=== PATIENT | female | born 1960 | race Two or more races ===

== ENCOUNTER 2022-10-31 17:09 | Emergency (ER) | payer BC ==
[~2022-10-31] VITALS: Ht 152.4 cm; Wt 73.5 kg
[2022-10-31] MEDS ORDERED: METFORMIN HCL1000 MG (17:21)
[2022-10-31] MEDS ORDERED: DICLOFENAC POTA50 MG PO (22:16)
[2022-10-31] MEDS ORDERED: TRAM1TAB98 PO (22:16)
[2022-10-31] MEDS ORDERED: TAMS0.4C PO (22:16)
== END 2022-10-31 22:21 | disposition home or self-care (01) ==
LOC: ER 17:09
DX: N20.0 Calculus of kidney (principal); K76.0 Fatty (change of) liver, not elsewhere classified; I10 Essential (primary) hypertension; R10.32 Left lower quadrant pain

== ENCOUNTER 2022-11-01 19:29 | Emergency (ER) | payer BC ==
[~2022-11-01] VITALS: Ht 152.4 cm; Wt 73.5 kg
[~2022-11-01 19:29] MED LIST: DICLOFENAC POTA50 MG PO; METFORMIN HCL1000 MG; TAMS0.4C PO; TRAM1TAB98 PO
== END 2022-11-02 01:14 | disposition home or self-care (01) ==
LOC: ER 19:29
DX: K29.60 Other gastritis without bleeding (principal); T40.425A Adverse effect of tramadol, initial encounter; Y92.89 Other specified places as the place of occurrence of the external cause; I10 Essential (primary) hypertension